=== PATIENT | female | born 1975 | race Two or more races ===

== ENCOUNTER 2019-03-07 07:48 | Outpatient (CLI) | payer OTHER | END 2019-03-07 07:53 | disposition home or self-care (01) | LOC: SONOGRAMA 07:48 | DX: E04.1 Nontoxic single thyroid nodule (principal) ==

== ENCOUNTER 2020-09-08 07:47 | Outpatient (CLI) | payer OTHER | END 2020-09-08 07:50 | disposition home or self-care (01) | LOC: MAMO-SONO 07:47 | DX: N60.01 Solitary cyst of right breast (principal); R92.8 Other abnormal and inconclusive findings on diagnostic imaging of breast ==

== ENCOUNTER 2021-06-29 07:05 | Outpatient (CLI) | payer OTHER | END 2021-06-29 14:40 | disposition home or self-care (01) | LOC: LAB 07:05 | DX: Z03.818 Encounter for observation for suspected exposure to other biological agents ruled out (principal) ==